=== PATIENT | female | born 1970 | race Caucasian/White ===

== ENCOUNTER → 2025-01-13 | Outpatient (CLI) | payer BC, SELFPAY ==
--- NOTE | 2025-01-13 15:32 | XR_ITS ---
Examination: Bilateral hands, 6 views. Technique: AP, Oblique, Lateral each hand total 6 views Date and time of exam: January 13, 2025 1543 hours INDICATIONS: Onset bilateral hand pain beginning 3 years ago. FINDINGS: Moderate juxta-articular bone demineralization No fracture or dislocation involving either hand No erosive or other significant arthritic change involving either hand Mild osteoarthritis distal interphalangeal joints second through fifth digits and interphalangeal joint first digit No avascular necrosis Mild osteoarthritis first carpometacarpal joints Impression: Mild osteoarthritis as above
--- NOTE | 2025-01-13 15:32 | XR_ITS ---
Examination: Lumbar spine 3 views TECHNIQUE: A lateral lumbar spine 3 views Date and time: January 13, 2025 1601 hours INDICATIONS: Low back pain beginning 3 years ago. FINDINGS: Lumbar dextroscoliosis 10 degrees Advanced disc narrowing L2-L3 with minimal anterolisthesis L3 on L2 No lumbar fracture No spondylolisthesis IMPRESSION: Advanced degenerative disc disease L2-L3
--- NOTE | 2025-01-13 15:32 | XR_ITS ---
Examination: Sacroiliac joints 3 views TECHNIQUE: AP, ARSLAN, CMDONALD sacroiliac joints 3 views Date and time: February 01 1604 hours INDICATIONS: Sacral pain this month FINDINGS: Moderate sacroiliitis, sclerosis about the SI joints Symmetrical sacral foramina No fracture is Impression : Moderate sacroiliitis
--- NOTE | 2025-01-13 15:32 | XR_ITS ---
Examination: Shoulder,left, 3 views Technique: Shoulder AP internal rotation, AP external rotation, Y view shoulder, 3 views Exam date and time :January 13, 2025 1543 hours INDICATIONS: Injured shoulder 3 years ago with persistent shoulder pain. FINDINGS: Advanced osteoarthritis glenohumeral joint Calcific tendinitis left shoulder No fractures or dislocation IMPRESSION: Advanced osteoarthritis glenohumeral joint Left shoulder soft tissue calcific tendinitis
== END | disposition home or self-care (01) ==
LOC: CDIM 15:22
PROVIDERS: PCP Physician Assistant Medical; Referring Provider Internal Medicine Rheumatology; Visit Provider Internal Medicine Rheumatology
DX: M19.042 Primary osteoarthritis, left hand (principal); M19.041 Primary osteoarthritis, right hand; M18.0 Bilateral primary osteoarthritis of first carpometacarpal joints; M51.360 Other intervertebral disc degeneration, lumbar region with discogenic back pain only; M19.012 Primary osteoarthritis, left shoulder; M75.32 Calcific tendinitis of left shoulder; M46.1 Sacroiliitis, not elsewhere classified; S49.92XS Unspecified injury of left shoulder and upper arm, sequela; X58.XXXS Exposure to other specified factors, sequela
CPT/HCPCS: 72100; 72202; 73030; 73130